=== PATIENT | female | born 1990 | race Two or more races ===

== ENCOUNTER → 2020-06-24 14:57 | Outpatient (CLI) | payer BC, SELFPAY | PROVIDERS: Referring Provider Obstetrics & Gynecology; Visit Provider Obstetrics & Gynecology | DX: Z34.81 Encounter for supervision of other normal pregnancy, first trimester (principal) | CPT/HCPCS: 36415 ==

== ENCOUNTER → 2020-06-25 | Outpatient (CLI) | payer BC, SELFPAY ==
[2020-06-25 20:25] LABS: Amphetamine Urine VISTA NEGATIVE (<1000 ng/mL); Barbiturate Urine VISTA NEGATIVE (< 200 ng/mL); Benzodiazepine Urine VISTA NEGATIVE (< 200 ng/mL); Cocaine Urine VISTA NEGATIVE (< 300 ng/mL); Ecstacy Urine VISTA NEGATIVE (< 500 ng/mL); Methadone Urine VISTA NEGATIVE (< 300 ng/mL); PCP Urine VISTA NEGATIVE (< 25 ng/mL); THC Urine VISTA NEGATIVE (< 50 ng/mL); Vista UDS pH Range 6
== END | disposition home or self-care (01) ==
PROVIDERS: Visit Provider Obstetrics & Gynecology
DX: O26.899 Other specified pregnancy related conditions, unspecified trimester (principal); R35.0 Frequency of micturition; Z3A.00 Weeks of gestation of pregnancy not specified
CPT/HCPCS: 80307; 87086

== ENCOUNTER → 2020-07-22 | Outpatient (CLI) | payer BC, SELFPAY ==
[2020-07-22 13:57] VITALS: BMI 23.3
[2020-07-26 03:07] LABS: Chlamydia By Nucleic Acid AMP Negative (Negative)
[2020-07-26 10:17] LABS: Gonococcus By Nucleic Acid AMP Negative (Negative)
== END | disposition home or self-care (01) ==
LOC: LABSPEC 16:22
PROVIDERS: Referring Provider Obstetrics & Gynecology; Visit Provider Obstetrics & Gynecology
DX: Z34.80 Encounter for supervision of other normal pregnancy, unspecified trimester (principal)
CPT/HCPCS: 87491; 87591

== ENCOUNTER → 2020-08-24 13:13 | Outpatient (CLI) | payer BC, SELFPAY ==
[2020-08-15 14:05] VITALS: BMI 23.2
--- NOTE | 2020-08-24 13:24 | US_ITS ---
STUDY: SECOND AND THIRD TRIMESTER OBSTETRICAL ULTRASOUND REASON FOR EXAM: Female, 29 years old anatomy LMP: 04/07/2020. TECHNIQUE: Transabdominal and Transvaginal TECHNICAL QUALITY: Adequate. PRIOR ULTRASOUND: None. FINDINGS: There is a single intrauterine fetus. The fetus is in a cephalic presentation. There is demonstrated cardiac activity with a heart rate of 147 bpm. There is a normal amniotic fluid volume. The largest amniotic fluid pocket measures 4.5 cm x 4.4 cm cm. The amniotic fluid index (KHADIJAH) is within normal limits. The placenta is anterior in location and is not low lying. There are Grade 0 placental changes. The cervix measures 3.3 cm in length. The adnexal regions are not visualized. BIOMETRY: BPD: 4.81 cm: 20 weeks, 3 days HC: 18.03 cm: 20 weeks, 3 days AC: 14.65 cm: 19 weeks, 6 days FL: 3 cm: 19 weeks, 1 days CI: 78% FL/BPD: 62% FL/HC: FL/AC: 20.5% HC/AC: 1.23 age by current US: 19 weeks, 6 days. YESSI by current US: 01/12/2021. Estimated weight: 312 grams, +/- 47 grams, 40 %. Age by LMP: 19 weeks, 6 days. YESSI by LMP: 01/12/2021. ANATOMY: Gender: Male Cranium: Normal lateral ventricles. Normal choroid plexus. Normal cerebellum. Normal cisterna magna. Normal face, nose and lips. Chest: Normal 4-chamber heart. Abdomen/Pelvis: Normal diaphragm. Normal stomach. Normal abdominal wall. Normal cord insertion. Normal 3 vessel cord. Normal kidneys. Normal bladder. Spine: Normal cervical spine. Normal thoracic spine. Normal lumbar spine. Normal sacrum. Extremities: Normal bilateral upper extremities. Normal bilateral lower extremities. IMPRESSION: Single live intrauterine gestation with a mean gestational age of 19 weeks and 6 days. Electronically Signed: Dwayne Ness MD at 15:35 EDT , Service support , STUDY: FIRST TRIMESTER OBSTETRICAL ULTRASOUND REASON FOR EXAM: Female, 29 years old . Assessment of placental localization. LMP: 04/07/2020. TECHNIQUE: Transvaginal TECHNICAL QUALITY: Adequate. PRIOR ULTRASOUND: None. FINDINGS: The placenta lies on the anterior wall of the uterus. There is no evidence of placenta previa. US/OB Anatomy Scan IMPRESSION: Anterior placenta. No evidence of placenta previa. Electronically Signed: Dwayne Ness MD at 15:36 EDT , Service support ,
== END ==
PROVIDERS: Referring Provider Obstetrics & Gynecology; Visit Provider Obstetrics & Gynecology
DX: Z34.90 Encounter for supervision of normal pregnancy, unspecified, unspecified trimester (principal)
CPT/HCPCS: 76805; 76817

== ENCOUNTER → 2020-10-14 14:38 | Outpatient (CLI) | payer BC, SELFPAY ==
[2020-09-12 15:38] VITALS: BMI 24.5
[2020-10-14 15:25] LABS: Absolute Lymphocyte Count 1.36 X10^3/uL (0.83-4.51); Absolute Neutrophil Count 7.1 X10^3/uL (2.0-7.7); Basophil# 0.02 X10^3/uL; Basophil% 0.2 % (0-1); Eosinophils% 1.1 % (0-5); Hematocrit 37.9 % (37-47); Hemoglobin 12.6 g/dL (12.0-15.0); Lymphocyte # 1.36 X10^3/ul (0.83-4.51); Lymphocyte % 14.5 % (19-41); Mean Corp Hgb Conc 33.2 g/dL (32-36); Mean Corpuscular Hgb 29.4 pg (27.0-32.0); Mean Corpuscular Volume 88.6 fL (81-99); Mean Platelet Vol. 9.5 fl (6.2-12.0); Monocyte# 0.78 X10^3/uL; Monocyte% 8.3 % (0-10); NRBC Flagged by Analyzer 0 % (0-5); Neutrophil # 7.05 X10^3/uL (2.7-7.7); Neutrophil % 75.5 % (47-70); Platelet Count 259 K/mm3 (150-450); RBC Distribution Width CV 12.7 % (11.6-14.6); RBC Distribution Width SD 40.8 fl (35.1-43.9); Red Blood Count 4.28 M/mm3 (4.2-5.4); White Blood Count 9.4 K/mm3 (4.4-11.0)
[2020-10-14 15:33] LABS: Glucose Challenge Gest 1H 50g 132 mg/dL (70-140)
== END ==
PROVIDERS: Obstetrics & Gynecology; Referring Provider Obstetrics & Gynecology; Visit Provider Obstetrics & Gynecology
DX: Z34.80 Encounter for supervision of other normal pregnancy, unspecified trimester (principal)
CPT/HCPCS: 82950; 85025

== ENCOUNTER → 2020-12-19 | Outpatient (CLI) | payer BC, SELFPAY | END | disposition home or self-care (01) | PROVIDERS: Visit Provider Obstetrics & Gynecology | DX: Z34.92 Encounter for supervision of normal pregnancy, unspecified, second trimester (principal) | CPT/HCPCS: 87077; 87081; 87186 ==

== ENCOUNTER → 2020-12-19 | Outpatient (CLI) | payer BC, SELFPAY ==
[2020-12-26 15:17] VITALS: BMI 26.1
== END | disposition home or self-care (01) ==
LOC: LABSPEC 12-26 16:26
PROVIDERS: Visit Provider Obstetrics & Gynecology
DX: Z00.00 Encounter for general adult medical examination without abnormal findings (principal)

== ENCOUNTER 2021-01-11 13:40 | Inpatient (IN) | payer BC, SELFPAY ==
[2021-01-11] VITALS (20 sets, daily range): BP systolic 102–180; BP diastolic 60–118; PULSE 72–110; TEMP 36.2–37.2; O2SAT 99; BMI 24.9
[2021-01-11 13:29] LABS: ROM Internal Control Test YES-OK TO RESULT pt. (Internal QC)
[2021-01-11 13:30] LABS: ROM Patient Test POSITIVE (Negative)
[2021-01-11] MEDS: Lactated Ringers 1,000 ML 50 ML IV (14:10)
[2021-01-11 14:36] LABS: Absolute Lymphocyte Count 1.97 X10^3/uL (0.83-4.51); Absolute Neutrophil Count 9.5 X10^3/uL (2.0-7.7); Basophil# 0.03 X10^3/uL; Basophil% 0.2 % (0-1); Eosinophil# 0.06 X10^3/uL; Eosinophils% 0.5 % (0-5); Hematocrit 43.2 % (37-47); Hemoglobin 14.2 g/dL (12.0-15.0); Lymphocyte # 1.97 X10^3/ul (0.83-4.51); Lymphocyte % 15.1 % (19-41); Mean Corp Hgb Conc 32.9 g/dL (32-36); Mean Corpuscular Hgb 28.8 pg (27.0-32.0); Mean Corpuscular Volume 87.6 fL (81-99); Mean Platelet Vol. 10.5 fl (6.2-12.0); Monocyte# 1.43 X10^3/uL; NRBC Flagged by Analyzer 0 % (0-5); Neutrophil # 9.46 X10^3/uL (2.7-7.7); Neutrophil % 72.7 % (47-70); Platelet Count 219 K/mm3 (150-450); RBC Distribution Width CV 13.5 % (11.6-14.6); RBC Distribution Width SD 43.2 fl (35.1-43.9); Red Blood Count 4.93 M/mm3 (4.2-5.4)
--- NOTE | 2021-01-11 16:36 | HP.PCM.OB_ITS ---
HPI - General General Date of Admission: 01/11/21 HPI Narrative JALYN BOWLES, is a 30 F at 39/6 who presents with leakage of fluid and contractions. ROM positive and patient admitted in active labor. Maternal Data Information YESSI Calculator Estimated Delivery Date Method Current WG Current Estimate 01/12/21 LMP (Certain) 39w 6d PFSH PFSH Medical History (Updated 01/11/21 @ 16:[address] Jolynn Valladares MD) No significant medical problems Positive GBS test Home Medications multivitamin no.47-iron fum 27 mg-folate no.1 1 mg-dha 300 mg capsule 1 cap PO DAILY 06/24/20 [History Last Taken 01/11/21 10:00 1 cap] Allergy/AdvReac Type Severity Reaction Status Date / Time No Known Allergies Allergy Verified 01/11/21 13:06 Surgical History No significant past surgical history Social History adopted: No household members: family housing: house number of children: 1 current occupational status: employed current occupation: [employer] pets and animals: No Smoking Status: Never smoker second hand exposure: No alcohol intake: never substance use type: does not use seatbelt use: always do you feel safe at home: Yes additional social history: - Paul Patient works at [employer] Social History 3 Elective abortions Hx Para 1 Spontaneous abortions 1 Hx # Term Pregnancies Ectopic pregnancies Hx # Pregnancies Multiple births # of living children Past Pregnancies Del. Date Name GA/Weeks Outcome Route Bth Weight Gen Labor Lgth Anesthesia Del Locatn Provider FOB Unknown 06/02/2009- Hernán 40 live - full term 7lbs Male 3 hours none [facility] Delivery Date: no complications Nanette Ramirez Visit Details Expected Delivery Route/Plan Labor Preferences- labor support person: mayuri labor intervention preferences: natural pain management options preferred: natural, no epi last cut cord/dad catch: maybe : yes PP control planned: IUD at 6w PP visit discussed possible routes of delivery and associated risks: [] special requests: [] Plans flu vaccine: given tdap vaccine: 10/14 rhogam: na LARC form signed: 11/14 movement and labor precautions reviewed. Problem list reviewed and updated with the most current plan of care details and appropriate orders placed. Relevant counseling for the gestational age provided. Continue routine care and follow up unless otherwise noted in visit notes/problem list details OB Flowsheet Initial Weight: 125 lb Date -?-?-?-?-?--?-?-?-?-?-?-?- EGA Weight BP Urine Prot -?-?-?-?-?-?-?-?-?-?-?-?- Glucose FHR FuHt Pres Dilation -?-?-?-?-?-?-?-?-?-?-?-?- Effaced St Visit Note 07/22/20 -?-?-?-?-?-?-?-?-?-?-?-?- 15w 1d 127 lb 4 oz (+2 lb 4 oz) 110/70 Negative -?-?-?-?-?-?-?-?-?-?-?-?- Negative 145 -?-?-?-?-?-?-?-?-?-?-?-?- GP - no cramping or bleeding. Genetic testing normal. Anatomy scan ordered. 08/15/20 -?-?-?-?-?-?-?-?-?-?-?-?- 18w 4d 127 lb (+2 lb) 104/72 -?-?-?-?-?-?-?-?-?-?-?-?- 145 -?-?-?-?-?-?-?-?-?-?-?--?- SM- no vb crampi ng 08/30/20 -?-?-?-?-?-?-?-?-?-?-?-?- 20w 5d 130 lb (+5 lb) 114/82 Negative -?-?-?-?-?-?-?-?-?-?-?-?- Negative 148 -?-?-?-?-?-?-?-?-?-?-?-?- -work in for d ecreased FM. FHT easily found. Noted FM. Reviewed US and anterior placenta. No VB, LOF 09/12/20 -?-?-?-?-?-?-?-?-?-?-?-?- 22w 4d 134 lb 2 oz (+9 lb 2 oz) 130/72 Negative -?-?-?-?-?-?-?-?-?-?-?-?- Negative 155 -?-?-?-?-?-?-?-?-?-?-?-?- GP - no ctx, LOF , VB, DFM. Anatomy nl. GCT next visit. 10/14/20 -?-?-?-?-?-?-?-?-?-?-?-?- 27w 1d 139 lb (+14 lb) 122/84 -?-?-?-?-?-?-?-?-?-?-?-?- 145 27 -?-?-?-?-?-?-?-?-?-?-?-?- SM- no vb lof go od fm no regular ctx cbc gct tdap today. 10/31/20 -?--?-?-?-?-?-?-?-?-?-?-?- 29w 4d 140 lb 6 oz (+15 lb 6 oz) 112/70 Negative -?-?-?-?-?-?-?-?-?-?-?-?- Negative 140 29 -?-?-?-?-?-?-?-?-?-?--?-?- GP - no LOF, VB, DFM, ctx. Discussed LARC - wants to discuss with before signing form. Still deciding on name. 11/14/20 -?-?-?-?-?-?-?-?-?-?-?-?- 31w 4d 144 lb (+19 lb) 114/70 Negative -?-?-?-?-?-?-?-?-?-?-?-?- Negative 150 31 -?-?-?-?-?-?-?-?-?-?-?-?- GP - no LOF, VB, DFM, ctx. LARC form signed. Discussed compression socks for varicose veins. 12/02/20 -?-?-?-?-?-?-?-?-?-?-?-?- 34w 1d 146 lb (+21 lb) 124/78 Negative -?-?-?-?-?-?-?-?-?-?-?-?- Negative 145 33 -?-?-?-?-?-?-?-?-?-?-?-?- SM- no vb lof go od fm no regular ctx. SM- no vb lof good fm no reg ular ctx.reviewed labor precautions and kick counts 12/12/20 -?-?-?-?-?-?-?-?-?-?-?-?- 35w 4d 149 lb 2 oz (+24 lb 2 oz) 118/70 Negative -?-?-?-?-?-?-?-?-?-?-?--?- Negative 140 35 Cephalic -?-?-?-?-?-?-?-?-?-?-?-?- GP - no LOF, VB, DFM, ctx. Denies complaints. 12/19/20 -?-?-?-?-?-?-?-?-?-?-?-?- 36w 4d 150 lb (+25 lb) 122/74 -?-?-?-?-?-?-?-?-?-?-?-?- 130 36 Cephalic 1 -?-?-?-?-?-?-?-?-?-?-?-?- 60 -2 SM- no vb lof good fm no regular ctx gbs done 12/26/20 -?-?-?-?-?-?-?-?-?-?-?-?- 37w 4d 152 lb 4 oz (+27 lb 4 oz) 112/80 Negative -?-?-?-?-?-?-?-?-?-?-?-?- Negative 135 37 Cephalic 1 -?-?-?-?-?-?-?-?-?-?-?-?- 60 -2 GP - no LO F, VB, DFM, ctx. Denies complaints. 01/02/21 -?-?-?-?-?-?-?-?-?-?-?-?- 38w 4d 154 lb 4 oz (+29 lb 4 oz) 110/78 Negative -?-?-?-?-?-?-?-?-?-?-?-?- Negative 145 38 Cephalic 2 -?-?-?-?-?-?-?-?-?-?-?-?- 60 -2 GP - no LO F, VB, DFM, regular ctx. Denies complaints. 01/09/21 -?-?-?-?-?-?-?-?-?-?-?-?- 39w 4d 155 lb (+30 lb) 132/88 Negative -?-?-?-?-?-?-?-?-?-?-?-?- Negative 140 38 Cephalic 4 -?-?-?-?-?-?-?-?-?-?-?-?- 70 -1 SM- no vb lof good fm irregular ctx 01/11/21 -?-?-?-?-?--?-?-?-?-?-?-?- 39w 6d 154 lb 8.705 oz (+29 lb 8.705 oz) 102/61 121/79 125/81 -?-?-?-?-?-?-?-?-?-?-?-?- -?-?-?-?-?-?-?-?-?-?-?-?- NST FHR Rate Baby A Baseline: 130 Variability:: Moderate Decelerations:: None NST Reactive:: Yes FHR Category:: Category I Uterine Activity:: q6-10min ROS Eyes Eyes: Reports systems reviewed and no addt'l complaints, except as documented ENT HEENT: Reports systems reviewed and no addt'l complaints, except as documented Cardiovascular Cardiovascular: Reports systems reviewed and no addt'l complaints, except as documented Respiratory/Chest Respiratory/Chest: Reports systems reviewed and no addt'l complaints, except as documented Gastrointestinal Gastrointestinal: Reports systems reviewed and no addt'l complaints, except as documented Genitourinary Genitourinary: Reports systems reviewed and no addt'l complaints, except as documented Musculoskeletal Musculoskeletal: Reports systems reviewed and no addt'l complaints, except as documented Integumentary Integumentary: Reports systems reviewed and no addt'l complaints, except as documented Neurologic Neurologic: Reports systems reviewed and no addt'l complaints, except as documented Psychiatric Psychiatric: Reports systems reviewed and no addt'l complaints, except as documented Endocrine Endocrinology: Reports systems reviewed and no addt'l complaints, except as documented Hematologic/Lymphatic Hematologic/Lymphatic: Reports systems reviewed and no addt'l complaints, except as documented Allergic/Immunologic Allergic/Immunologic: Reports systems reviewed and no addt'l complaints, except as documented Vital Signs Vital Signs Vital Signs: 01/11/21 13:18 01/11/21 15:01 01/11/21 16:01 Temperature 99.0 F 99.0 F 98.6 F Temperature Source Temporal Pulse Rate 78 72 85 Blood Pressure 102/61 121/79 H 125/81 H BP Systolic 102 121 125 BP Diastolic 61 79 81 Weight Weight: 154 lb 8.705 oz Body Mass Index (BMI) 24.9 Physical Exam Const alert, oriented x3, no apparent distress, average body habitus, healthy appearing and well nourished HEENT normocephalic and moist oral mucous membranes Head and Scalp: atraumatic Eyes PERRL and EOMs intact bilaterally Neck full ROM Resp normal respiratory effort, no retractions and no use of accessory muscles Cardio regular rate and regular rhythm GI soft to palpation, non-tender and non-distended Extremity normal to inspection and full ROM Skin no rashes or lesions noted Neuro no focal motor deficits and no sensory deficits noted Psych mental status grossly normal, affect normal, speech normal and activity/motor behavior normal Labs Labs Labs: Blood Type A POSITIVE Antibody Screen NEGATIVE Hct 43.2 % (37-47) Hgb 14.2 g/dL (12.0-15.0) Obstetrics US Neisseria gonorrhoeae DNA (JL) Negative (Negative) Glucose 1 Hr 50 gm 132 mg/dL (70-140) Miscellaneous Test Assessment & Plan (1) GBS (group B streptococcus) infection: COMMENT: Positive in other chart. Clinda resistant. (2) Supervision of other normal : COMMENT: PRR YESSI 01/12/21 boy PC: Hernán Spouse: Paul (3) : QUALIFIERS: Weeks of gestation: 39 weeks Qualified Code(s): Z3A.39 - 39 weeks gestation of COMMENT: genetic- low risk, declines carrier and AFP; Anatomy NL (4) Active labor at term: PLAN: Patient presents IAL, plan expectant management for , pitocin if needed. Pain management: desires natural. GBS positive plan IV PCN. Management of any complications: none I have reviewed the [facility] and made any clinically relevant updates.
[2021-01-11] MEDS: Oxytocin 30 units/NS 500 ml 30 UNITS/500 ML IV.SOLN IV (16:52)
[2021-01-11] MEDS: Penicillin G 3,000,000 Units 50 ML 100 UNITS IV (18:28)
[2021-01-11] MEDS: Lactated Ringers 500 ML 999 ML IV (19:22)
[2021-01-11] MEDS: Oxytocin 30 units/NS 500 ml 30 UNITS/500 ML IV.SOLN 334 UNITS IV (20:26)
[2021-01-11] MEDS: Methylergonovine 0.2 MG/ML Ampul IM (20:36)
--- NOTE | 2021-01-11 20:42 | OP.PCM_ITS ---
Assessment & Plan (1) Spontaneous vaginal delivery: COMMENT: GP SROM 01/11 Boy- (2) Active labor at term: (3) Positive GBS test: (4) GBS (group B streptococcus) infection: COMMENT: Positive in other chart. Clinda resistant. (5) Supervision of other normal : COMMENT: PRR YESSI 01/12/21 boy PC: Hernán Spouse: Paul (6) : QUALIFIERS: Weeks of gestation: 39 weeks Qualified Code(s): Z3A.39 - 39 weeks gestation of COMMENT: genetic- low risk, declines carrier and AFP; Anatomy NL Maternal Data Information YESSI Calculator Estimated Delivery Date Method Current WG Current Estimate 01/12/21 LMP (Certain) 39w 6d Vaginal Delivery Maternal Presentation Maternal Presentation: Spontaneous Rupture of Membranes Maternal Presentation: 30-year-old G2, P1 at 39 weeks 6 days admitted for spontaneous rupture of membranes. Patient was augmented with Pitocin. Operative Information Date of Procedure: 01/11/21 Pre-Operative Diagnosis: Term , spontaneous rupture of membranes Post-Operative Diagnosis: Same Surgery / Procedure Performed: Spontaneous Vaginal Delivery Type of Anesthesia: Local with 1% Lidocaine Estimated Blood Loss: 150 Findings Description of Procedure: Patient began pushing and delivered the head in the KELY presentation. The head was delivered atraumatically and no nuchal cord was noted. The anterior and posterior shoulders delivered without complication followed by the rest of the infant and the was placed on the maternal abdomen. Delayed cord clamping was employed for approximately 60 seconds. Cord was clamped and cut and gentle traction was applied to the cord and the placenta delivered spontaneously immediately following it was noted to be intact with three-vessel cord. The perineum and vagina were inspected and a midline first- degree perineal laceration was noted and repaired in the standard fashion using 3-0 Vicryl Rapide suture. EBL was 150 cc. Patient and infant tolerated delivery well. Presentation: Vertex and KELY Amniotic Membrane Rupture Type: Spontaneous Amniotic Fluid Description: Clear Placenta Disposition: [facility] Cord Vessel Description: 3 Vessels Cord Entanglement: None A Gender: Male Delayed Cord Clamping: Yes Post Vaginal Delivery Medications Given After Delivery: IV Pitocin Episiotomy Description: None Laceration: Midline, Perineal Extension/lac and 1st degree Complication Complications: None Procedures Urinary/Genital [id number]: [id number] Vaginal Delivery [facility]
[2021-01-12] VITALS (14 sets, daily range): BP systolic 108–123; BP diastolic 54–69; PULSE 75–93; RESP 14–16; TEMP 36.4–36.9; O2SAT 97
--- NOTE | 2021-01-12 07:26 | PN.OBGYN_ITS ---
Subjective Subjective Patient doing well without complaints. Tolerating PO. Ambulating and voiding without difficulty. Breast feeding well. Denies chest pain, shortness of breath, calf pain/swelling, fevers, chills, lightheadedness. Objective Data Objective Data Vital Signs: Vital Signs Temp Pulse Resp BP Pulse Ox 97.8 F 81 14 118/63 99 01/12/21 05:10 01/12/21 05:10 01/12/21 05:10 01/12/21 05:10 01/11/21 19:19 Oxygen Delivery Method Room Air Weight: 154 lb 8.705 oz Body Mass Index (BMI) 24.9 Intake & Output: Intake and Output for Last 24 Hours 01/10/21 01/11/21 01/12/21 23:59 23:59 23:59 Intake Total 1614.14 / 1614.14 Output Total 1150 / 1150 Balance 464.14 / 464.14 Lab / Micro Data Result Diagrams: 01/11/21 14:10 Labs: Laboratory Results - last 24 hr 01/11/21 13:05: Vag Amniotic Fld Detect POSITIVE H 01/11/21 14:10: WBC 13.0 H, RBC 4.93, Hgb 14.2, Hct 43.2, MCV 87.6, MCH 28.8, MCHC 32.9, RDW Std Deviation 43.2, RDW Coeff of Fab 13.5, Plt Count 219, MPV 10.5, Immature Gran % (Auto) 0.500, Neut % (Auto) 72.7 H, Lymph % (Auto) 15.1 L, Cecil % (Auto) 11.0 H, Eos % (Auto) 0.5, Baso % (Auto) 0.2, Absolute Neuts (auto) 9.5 H, Absolute Lymphs (auto) 1.97, Nucleated RBC % 0 01/11/21 14:10: Blood Type A POSITIVE, Antibody Screen NEGATIVE Micro: Microbiology 01/11/21 14:15 Mucosa - Nose SARS-CoV-2 Antigen (Rapid) - Final ROS Constitutional Constitutional: Denies fever(s) Cardiovascular Cardiovascular: Denies chest pain, dyspnea or lightheadedness Gastrointestinal Gastrointestinal: Reports abdominal pain; Denies constipation or diarrhea Neurologic Neurologic: Denies dizziness or headache(s) Physical Exam Const alert, oriented x3, no apparent distress, average body habitus, healthy appea ring and well nourished HEENT normocephalic Head and Scalp: atraumatic Eyes PERRL and EOMs intact bilaterally Neck full ROM Lymph Lymphatic: no lymphadenopathy noted Resp normal respiratory effort, no retractions and no use of accessory muscles Cardio regular rate GI soft to palpation, non-tender and non-distended Palpation: other Other Details: fundus firm Extremity normal to inspection and no clubbing, cyanosis or edema Skin no rashes or lesions noted Neuro no focal motor deficits and no sensory deficits noted Psych mental status grossly normal, affect normal and speech normal Assessment & Plan (1) Spontaneous vaginal delivery: COMMENT: GP OSCAR COYLE 01/11 Drew PLAN: s/p PPD # 1 1. routine post delivery care 2. breast feeding- support given 3. rh positive 4. rubella immune
--- NOTE | 2021-01-12 07:28 | PCM.DC ---
Discharge Instructions Diet Discharge Diet: No restrictions Activity Discharge Activity: Return to Normal Activity, May Not Drive (while taking narcotic pain medications.) and May Shower May resume sexual activity in: 4-6 weeks Dressing / Incision Call your doctor if your incision/area has: Continuous Slow Oozing, Sudden Increased Bleeding, Increased Pain/ Swelling, Increased Redness and Foul Smelling Discharge Follow Up Care When: Call to make an appointment with your doctor in 6 weeks. If you had elevated Blood Pressure or 4th degree laceration you will need to be seen in 2 weeks. Test Results: Test results from this visit will be discussed in further detail at your follow-up appointment, if applicable. Discharge Plan Admission Admit Date/Time: 01/11/21 13:40 Attending Provider: Jolynn Valladares Primary Care Provider: Care Physician,Sakina Primary Instructions Patient Instructions: After a Vaginal Discharge Orders/Prescriptions Prescriptions: New ibuprofen 800 mg tablet 800 mg PO Q8H PRN (Reason: pain) Qty: 30 RF: 1 Continued PNV-DHA 27 mg iron-1 mg -300 mg capsule 1 cap PO DAILY RF: 0 Referrals / Follow Up: Care Physician,No Primary [Primary Care Provider] - Disposition Disposition (needs filled in before D/C Order can be placed): Home, Self Care
== END 2021-01-12 22:30 | disposition home or self-care (01) | DRG 806 ==
LOC: WPOUT 13:43 → WP 13:43
PROVIDERS: Admitting Provider Obstetrics & Gynecology; Referring Provider Obstetrics & Gynecology; Visit Provider Obstetrics & Gynecology
DX: O98.82 Other maternal infectious and parasitic diseases complicating childbirth (principal); Z16.39 Resistance to other specified antimicrobial drug; Z37.0 Single live birth; O99.824 Streptococcus B carrier state complicating childbirth; B95.1 Streptococcus, group B, as the cause of diseases classified elsewhere; O70.0 First degree perineal laceration during delivery; Z3A.39 39 weeks gestation of pregnancy
CPT/HCPCS: 59025; 59050; 84112; 85025; 86850; 86900; 86901; 87426; 99218; J7120; G0378

== ENCOUNTER → 2021-02-27 16:45 | Outpatient (CLI) | payer BC, SELFPAY ==
[2021-03-02 18:21] LABS: HPV Reflexed? NOT INDICATED
== END ==
PROVIDERS: Referring Provider Obstetrics & Gynecology; Visit Provider Obstetrics & Gynecology
DX: Z12.4 Encounter for screening for malignant neoplasm of cervix (principal)
CPT/HCPCS: 88175; G0145

== ENCOUNTER → 2021-11-10 | Outpatient (CLI) | payer OTHER, SELFPAY ==
--- NOTE | 2021-11-10 15:24 | US_ITS ---
STUDY: ULTRASOUND OF THE FEMALE PELVIS - COMPLETE REASON FOR EXAM: Female, 30 years old. pain, iud check TECHNIQUE: Endovaginal. Transvaginal US was obtained to better visualized the ovaries. COMPARISON: None. FINDINGS: The uterus is retroverted and is in a midline position. The uterus measures 6.6 x 4.7 cm. Normal uterine cervix. The endometrium measures 2.7 mm in thickness, and isfluid distended hyperechoic. There is no demonstrated endometrial mass. There is no demonstrated myometrial mass. I.U.D. - The patient does have an I.U.D. The right ovary is visualized. The right ovary measures 2.7 x 1.7 cm. There is no right ovarian cyst or ovarian mass. There is no visualized right adnexal mass or complex lesion. There is normal arterial and normal venous vascularity. The left ovary is visualized. The left ovary measures 2.9 x 1.7 cm. There is no left ovarian cyst or ovarian mass. There is no visualized left adnexal mass or complex lesion. There is normal arterial and normal venous vascularity. There is no fluid in the cul-de-sac. Urinary bladder volume of 35 cc. US/Transvaginal Non- IMPRESSION: IUD in place. Electronically Signed: Madan Mccarthy MD at 19:03 EDT ,
--- NOTE | 2021-11-10 15:24 | US_ITS ---
STUDY: ULTRASOUND OF THE FEMALE PELVIS - COMPLETE REASON FOR EXAM: Female, 30 years old. pain, iud check TECHNIQUE: Endovaginal. Transvaginal US was obtained to better visualized the ovaries. COMPARISON: None. FINDINGS: The uterus is retroverted and is in a midline position. The uterus measures 6.6 x 4.7 cm. Normal uterine cervix. The endometrium measures 2.7 mm in thickness, and isfluid distended hyperechoic. There is no demonstrated endometrial mass. There is no demonstrated myometrial mass. I.U.D. - The patient does have an I.U.D. The right ovary is visualized. The right ovary measures 2.7 x 1.7 cm. There is no right ovarian cyst or ovarian mass. There is no visualized right adnexal mass or complex lesion. There is normal arterial and normal venous vascularity. The left ovary is visualized. The left ovary measures 2.9 x 1.7 cm. There is no left ovarian cyst or ovarian mass. There is no visualized left adnexal mass or complex lesion. There is normal arterial and normal venous vascularity. There is no fluid in the cul-de-sac. Urinary bladder volume of 35 cc. US/Pelvic (Non ) IMPRESSION: IUD in place. Electronically Signed: Madan Mccarthy MD at 19:03 EDT Reading Location ID and State: [facility] / [place] , Service support ,
== END | disposition home or self-care (01) ==
LOC: US 15:23
PROVIDERS: Referring Provider Nurse Practitioner Women's Health; Visit Provider Nurse Practitioner Women's Health
DX: R10.2 Pelvic and perineal pain (principal); Z30.431 Encounter for routine checking of intrauterine contraceptive device
CPT/HCPCS: 76830; 76856

== ENCOUNTER → 2023-09-09 | Outpatient (CLI) | payer OTHER, SELFPAY ==
[2023-09-09 15:43] LABS: T4 Free Direct 1.06 ng/dL (0.76-1.46)
== END | disposition home or self-care (01) ==
LOC: LAB 13:49
PROVIDERS: Advanced Practice Midwife; Visit Provider Obstetrics & Gynecology
DX: R53.83 Other fatigue (principal)
CPT/HCPCS: 36415; 84439; 84443

== ENCOUNTER → 2023-09-25 | Outpatient (CLI) | payer OTHER, SELFPAY ==
[2023-09-25 14:26] LABS: Absolute Lymphocyte Count 1.29 X10^3/uL (0.83-4.51); Absolute Neutrophil Count 3.2 X10^3/uL (2.0-7.7); Basophil# 0.03 X10^3/uL; Basophil% 0.6 % (0-1); Eosinophil# 0.06 X10^3/uL; Eosinophils% 1.2 % (0-5); Hematocrit 45.3 % (37-47); Hemoglobin 14.9 g/dL (12.0-15.0); Lymphocyte # 1.29 X10^3/ul (0.83-4.51); Lymphocyte % 25.2 % (19-41); Mean Corp Hgb Conc 32.9 g/dL (32-36); Mean Corpuscular Hgb 27.8 pg (27.0-32.0); Mean Corpuscular Volume 84.5 fL (81-99); Mean Platelet Vol. 9.6 fl (6.2-12.0); Monocyte# 0.52 X10^3/uL; Monocyte% 10.2 % (0-10); NRBC Flagged by Analyzer 0 % (0-5); Neutrophil # 3.21 X10^3/uL (2.7-7.7); Neutrophil % 62.6 % (47-70); Platelet Count 290 K/mm3 (150-450); RBC Distribution Width CV 12.4 % (11.6-14.6); Red Blood Count 5.36 M/mm3 (4.2-5.4); White Blood Count 5.1 K/mm3 (4.4-11.0)
[2023-09-25 15:04] LABS: Anion Gap 1 (5-15); BUN 8 mg/dL (7-18); Calcium,Total 8.9 mg/dL (8.5-10.1); Chloride 110 mmol/L (98-107); Creatinine, Serum 0.62 mg/dL (0.55-1.02); EST Glomerular Filtration Rate 120 mL/min (>60); Est Glom Filt Rate - Afr Amer 145 mL/min (>60); Glucose 89 mg/dL (74-106); Potassium 3.6 mmol/L (3.5-5.1); Sodium Level 140 mmol/L (136-145); Thyroid Stim Hormone (TSH) 1.79 uIU/mL (0.358-3.74)
== END | disposition home or self-care (01) ==
LOC: LAB 13:54
PROVIDERS: Referring Provider Internal Medicine Cardiovascular Disease; Visit Provider Internal Medicine Cardiovascular Disease
DX: R00.2 Palpitations (principal)
CPT/HCPCS: 36415; 80048; 84443; 85025

== ENCOUNTER → 2025-04-15 | Outpatient (CLI) | payer SELFPAY ==
[2025-04-15 12:27] LABS: Hematocrit 47.5 % (37-47); Hemoglobin 15.3 g/dL (12.0-15.0); Immature Granulocytes Count 0.010 X10^3/uL (0.0-0.0); Mean Corp Hgb Conc 32.2 g/dL (32-36); Mean Corpuscular Volume 85.4 fL (81-99); Mean Platelet Vol. 9.8 fl (6.2-12.0); NRBC Flagged by Analyzer 0 % (0-5); Platelet Count 326 K/mm3 (150-450); RBC Distribution Width CV 12.4 % (11.6-14.6); RBC Distribution Width SD 38.5 fl (35.1-43.9); Red Blood Count 5.56 M/mm3 (4.2-5.4); White Blood Count 4.7 K/mm3 (4.4-11.0)
[2025-04-15 13:15] LABS: AST(SGOT) 16 U/L (<=31); Alanine Aminotransfer ALT/SGPT 14 U/L (<=34); Albumin, Serum 4.6 g/dL (3.5-5.0); Alkaline Phosphatase 72 U/L (35-104); Anion Gap 11 (5-15); BUN 8 mg/dL (4-19); BUN/Creat Ratio 11.6 RATIO (10-20); Calcium,Total 9.4 mg/dL (7.6-11.0); Carbon Dioxide 23.4 mmol/L (21.0-32.0); Chloride 105 mmol/L (98-108); Globulin 3.8 g/dL (2.2-4.2); Glucose 96 mg/dL (70-99); Potassium 4.1 mmol/L (3.3-5.1); Vitamin D,25 Hydroxy 17.5 ng/mL (30-100)
[2025-04-19 11:08] LABS: HPV APTIMA, High Risk Negative (Negative)
== END | disposition home or self-care (01) ==
PROVIDERS: Visit Provider Nurse Practitioner Family
DX: Z12.4 Encounter for screening for malignant neoplasm of cervix (principal); R51.9 Headache, unspecified
CPT/HCPCS: 36415; 80053; 82306; 84439; 84443; 85025; 87624; 88175; G0145